=== PATIENT | male | born 1985 | race Caucasian/White ===

== ENCOUNTER 2021-12-28 09:28 | Emergency (ER) | payer OTHER ==
[~2021-12-28] VITALS: Ht 167.6 cm; Wt 75.0 kg
--- NOTE | 2021-12-28 09:56 | PHYS DOC ---
Past Medical History Additional Past Medical Histor: vasovegal syncope, enlarged prostate (AMISHA HURTADO APRN) Past Surgical History: No Surgical History Additional Past Surgical Histo: prk eye surgery (AMISHA HURTADO APRN) General Adult EDM: Chief Complaint: ANKLE PROBLEM HPI: HPI: Patient is a 36-year-old male that presents today with left ankle pain. Patient states he was walking in the parking lot of his dentist office to go have a tooth extraction slipped and fell on the ice and had left ankle pain and deformity. Patient states that he had taken 800 ibuprofen this morning and last night took 5 mg of Valium in anticipation for a tooth extraction today, he states the last time he ate or drink anything except for a sip of water was 11:30 PM last night. (AMISHA HURTADO APRN) Review of Systems: Review of Systems: Constitutional: Denies fever or chills. [] Eyes: Denies change in visual acuity. [] HENT: Denies nasal congestion or sore throat. [] Respiratory: Denies cough or shortness of breath. [] Cardiovascular: Denies chest pain or edema. [] GI: Denies abdominal pain, nausea, vomiting, bloody stools or diarrhea. [] : Denies dysuria. [] Musculoskeletal: Left ankle pain Integument: Denies rash. [] Neurologic: Denies headache, focal weakness or sensory changes. [] Endocrine: Denies polyuria or polydipsia. [] Lymphatic: Denies swollen glands. [] Psychiatric: Denies depression or anxiety. [] (AMISHA HURTADO APRN) Heart Score: C/O Chest Pain: N/A Risk Factors: Risk Factors: DM, Current or recent (<one month) smoker, HTN, HLP, family histo ry of CAD, obesity. Risk Scores: Score 0 - 3: 2.5% MACE over next 6 weeks - Discharge Home Score 4 - 6: 20.3% MACE over next 6 weeks - Admit for Clinical Observation Score 7 - 10: 72.7% MACE over next 6 weeks - Early Invasive Strategies (AMISHA HURTADO APRN) Allergies: Allergies: Allergies Coded Allergies Type Severity Reaction Last Updated Verified Sulfa (Sulfonamide Antibiotics) Allergy Unknown 12/28/21 Yes (AMISHA HURTADO APRN) Physical Exam: PE: Constitutional: Well developed, well nourished, MILD distress, non-toxic appearance. [] HENT: Normocephalic, atraumatic, bilateral external ears normal, oropharynx moist, no oral exudates, nose normal. [] Eyes: PERRLA, EOMI, conjunctiva normal, no discharge. [] Neck: Normal range of motion, no tenderness, supple, no stridor. [] Cardiovascular:Heart rate regular rhythm, no murmur [] Lungs & Thorax: Bilateral breath sounds clear to auscultation [] Abdomen: Bowel sounds normal, soft, no tenderness, no masses, no pulsatile masses. [] Skin: Warm, dry, no erythema, no rash. [] Back: No tenderness, no CVA tenderness. [] Extremities: Left ankle deformity noted decreased range of motion in the ankle joint, patient is able to move toes distal to the injury, dorsalis pedis and posterior tibial pulses intact, cap refill is less than 2 seconds sensory is intact distal to the injury. Neurologic: Alert and oriented X 3, normal motor function, normal sensory function, no focal deficits noted. [] Psychologic: Affect normal, judgement normal, mood normal. [] (AMISHA HURTADO APRN) PE: Constitutional: Well developed, uncomfortable HENT: Normocephalic, atraumatic Eyes: Conjunctiva normal, no discharge Neck: Normal range of motion, no tenderness Lungs & Thorax: Equal chest rise and fall, no respiratory distress Cardiovascular: Heart rate normal and regular rhythm per monitor Skin: Warm, dry, no erythema, no rash Extremities: Left foot/ankle deformity and swelling, tenderness to left ankle/foot with any movement, left DP and PT +2, CR < 2 sec Neurologic: Alert and oriented X 3, no focal deficits noted Psychologic: Affect normal, judgement normal (DOT BLACK DO) Current Patient Data: Vital Signs: Vital Signs Date Time Temp Pulse Resp B/P (MAP) Pulse Ox O2 Delivery O2 Flow Rate FiO2 12/28/21 09:43 98.7 58 18 133/68 (89) 98 Room Air 98.7 (AMISHA HURTADO APRN) EKG: EKG: [] (AMISHA HURTADO APRN) Radiology/Procedures: Radiology/Procedures: PROCEDURE: ANKLE LEFT 3V EXAM: XR EXAM OF ANKLE_LEFT 3V 12/28/2021 9:55 AM CLINICAL INDICATION: Slipped in parking lot and fell, left ankle pain COMPARISON: None TECHNIQUE: 3 views of the left ankle FINDINGS: There is posterior dislocation of the talus relative to the tibia and anterior widening of the tibiotalar joint space. There is an oblique distal fibular fracture with one-half shaft width lateral displacement of the distal fragment. There is a posterior malleolar fracture with a displaced fracture fragment measuring 1.5 x 0.6 cm on lateral view. There is a mildly displaced medial malleolar fracture. The talar dome is intact. Moderate circumferential soft tissue swelling. IMPRESSION: Trimalleolar fracture-dislocation of the ankle. Electronically signed by: Kelsey Kenney MD (12/28/2021 10:21 AM) [id number] REASON: post reduction PROCEDURE: ANKLE LEFT 3V AP, lateral, and oblique views of the left ankle were obtained. History: Reason: post reduction / Spl. Instructions: / History: Comparison: 10:04 AM of the same day. Interval reduction of the previously visualized dislocation. There is a persistent horizontally oriented fracture of the medial malleolus. Bleakly oriented fracture of the distal fibula is identified. Vertically oriented f racture of the posterior malleolus is identified. There is persistent widening of the ankle mortise. There is subcutaneous swelling identified. Overlying cast is seen. IMPRESSION: 1. Trimalleolar fracture reidentified. Postreduction films show improved an atomic alignment. There is persistent widening of the ankle mortise suggestive of disruption of the interosseous membrane as well. Electronically signed by: Andre Rojas MD (12/28/2021 12:26 PM) [id number] [] (AMISHA HURTADO APRN) Course & Med Decision Making: Course & Med Decision Making Pertinent Labs and Imaging studies reviewed. (See chart for details) 1240 patient had a closed reduction of the left ankle by Dr. Black, post reduction films show an adequate reduction of the tibia, splint was placed after reduction, neurovascular is intact post reduction with splint in place. Dr. Ricky santos with orthopedic services was contacted and she will see the patient on Friday for further management of this trimalleolar fracture. Patient will be sent home with splint in place, use of crutches for ambulation and hydrocodone's for pain. Patient and significant other are agreeable to the plan of care. (AMISHA HURTADO APRN) Keyur Disclaimer: Keyur Disclaimer: This electronic medical record was generated, in whole or in part, using a voice recognition dictation system. (AMISHA HURTADO APRN) Splinting Splinting : Location: Left ankle Hand-Made Type: orthoglass Splint: Posterior OCL and stirrup splint Pre-Proc Neuro Vasc Exam: normal Post-Proc Neuro Vasc Exam: normal, unchanged from pre-exam (DOT BLACK DO) Additional Procedures Progress Fracture/dislocation reduction: (under Moderate Sedation) Written consent obtained. Time out performed. Monitors in placement including continuous cardiac, O2 sat, and end tidal CO2 monitoring. Supplemental O2 provided at 2L via NC. IVF bolusing also given. Procedural Sedation performed with administration of 100mcg of Fentanyl followed by 10mg of Etomidate (which was pushed by myself). Adequate sedation effects achieved and traction/countertraction performed on patient's left ankle with improved alignment of foot on talus. Splint materials applied including Posterior OCL and stirrup orthoglass splint. Limb checked with good sensation and vascularity. Patient tolerated procedure well and without difficulty. (DOT BLACK DO) Departure Departure Impression: Primary Impression: Trimalleolar fracture of left ankle Qualified Codes: S82.852A - Displaced trimalleolar fracture of left lower leg, initial encounter for closed fracture Disposition: HOME / SELF CARE / HOMELESS Condition: STABLE Referrals: CLOVER GOETZ MD Patient Instructions: Ankle Fracture, Cast or Splint Care, Crutch Use Additional Instructions: Keep splint clean and dry, while sitting keep ankle elevated to reduce swelling Ice 20 minutes on 3-4 times daily No weight to the left ankle use crutches at all times Hydrocodone 1 to 2 tablets every 4-6 hours as needed for pain, use with caution may cause drowsiness and constipation [id number] Motrin 600 mg every 6 hours as needed for mild to moderate pain Follow-up with Dr. Goetz orthopedic services at [facility], [address] [place] [address], [address], [place] [address], number [phone] Scripts Hydrocodone Bit/Acetaminophen (HYDROCODONE-APAP 5-325 ) 1 Tab Tablet 1 TAB PO PRN Q6HRS PRN for PAIN, #30 TAB 0 Refills Prov: GENESISAMISHA SIENNA 12/28/21 Attending Signature Attending Signature I have personally interviewed and examined the patient. All charts, labs, and imaging studies were reviewed. I agree with the PA/RECYCLING DIRECTOR's findings, exam, and plan. (DOT BLACK DO) MODERATE SEDATION ASSESSMENT* RISKS/ALTERNATIVES Risks/Alternatives Risks and alternatives of this type of sedation and procedure discussed with: RISK/ALTERNATIVES: Patient (DOT BLACK DO) H & P ON CHART H & P H & P on chart and reviewed for co-morbid conditions and appropriate labs. H&P ON CHART: Yes (DOT BLACK DO) STATUS PREG STATUS ASSESSED: N/A (DOT BLACK DO) MEDS/ALLERGIES REVIEWED Meds/Allergies Reviewed Medications and Allergies including time and route of recently administered narcotics and sedatives. MEDS/ALLERGIES REVIEWED: Yes (DOT BLACK DO) ASA RATING ASA RATING: I (DOT BLACK DO) AIRWAY ASSESSMENT Airway Assessment Airway patency, oral function limitations, presence of caps, crowns, dentures, partials, and ability to extend neck assessed. AIRWAY ASSESSMENT: Yes (DOT BLACK DO) MALLAMPATI SCORE MALLAMPATI SCORE: II (DOT BLACK DO) PRE-SEDATION ASSESSMENT PRE-SEDATION ASSESSMENT: Yes (DOT BLACK DO) AMISHA HURTADO CHILD DEVELOPMENT ASSISTANT Dec 28, 2021 09:56 DOT BLACK DO Jan 02, 2022 17:17
[2021-12-28] MEDS ORDERED: ONDANSETRON PF 4 MG/2 ML VIAL. IVP ONE (10:00)
[2021-12-28] MEDS ORDERED: fentaNYL PF VIAL 100 MCG/2 ML VIAL IVP ONE ×2 (10:00→10:15)
[2021-12-28] MEDS ORDERED: ETOMIDATE 20 MG/10 ML VIAL. IV ONE (10:15)
[2021-12-28] MEDS ORDERED: IV NORMAL SALINE 1000ML BAG 1,000 ML IV ONE (10:15)
--- NOTE | 2021-12-28 10:23 | RAD ---
EXAM: XR EXAM OF ANKLE_LEFT 3V 12/28/2021 9:55 AM CLINICAL INDICATION: Slipped in parking lot and fell, left ankle pain COMPARISON: None TECHNIQUE: 3 views of the left ankle FINDINGS: There is posterior dislocation of the talus relative to the tibia and anterior widening of the tibiotalar joint space. There is an oblique distal fibular fracture with one-half shaft width la teral displacement of the distal fragment. There is a posterior malleolar fracture with a displaced f racture fragment measuring 1.5 x 0.6 cm on lateral view. There is a mildly displaced medial malleolar fracture. The talar dome is intact. Moderate circumferential soft tissue swelling. IMPRESSION: Trimalleolar fracture-dislocation of the ankle. Electronically signed by: Kelsey Kenney MD (12/28/2021 10:21 AM) [id number]
[2021-12-28 11:51] VITALS: BP 127/69
[2021-12-28] MEDS ORDERED: fentaNYL PF VIAL 100 MCG/2 ML VIAL IV ONE (12:30)
[2021-12-28] MEDS ORDERED: HYDR-2761 PO (12:49)
[2021-12-28 12:51] VITALS: BP 118/63
--- NOTE | 2021-12-28 13:13 | RAD ---
AP, lateral, and oblique views of the left ankle were obtained. History: Reason: post reduction / Spl. Instructions: / History: Comparison: 10:04 AM of the same day. Interval reduction of the previously visualized dislocation. There is a persistent horizontally orien symone fracture of the medial malleolus. Bleakly oriented fracture of the distal fibula is identified. V ertically oriented fracture of the posterior malleolus is identified. There is persistent widening of the ankle mortise. There is subcutaneous swelling identified. Overlying cast is seen. IMPRESSION: 1. Trimalleolar fracture reidentified. Postreduction films show improved anatomic alignment. There is persistent widening of the ankle mortise suggestive of disruption of the interosseous membrane as we ll. Electronically signed by: Andre Rojas MD (12/28/2021 12:26 PM) [id number]
== END 2021-12-28 13:07 | disposition home or self-care (01) ==
LOC: ER 09:28
DX: S82.852A Displaced trimalleolar fracture of left lower leg, initial encounter for closed fracture (principal); Z88.2 Allergy status to sulfonamides; W00.0XXA Fall on same level due to ice and snow, initial encounter; Y93.01 Activity, walking, marching and hiking; Y92.89 Other specified places as the place of occurrence of the external cause; Y99.8 Other external cause status
CPT/HCPCS: 27818; 73610; 96361; 96374; 96375; 96376; 99285; J2405; J3010; J3490; J7030